=== PATIENT | female | born 1945 | race Caucasian/White ===

== ENCOUNTER 2020-05-30 04:14 | Inpatient (IN) | payer OTHER ==
[~2020-05-30] VITALS: Ht 154.9 cm; Wt 39.8 kg
[2020-05-30 06:00] VITALS: BP 153/68
--- NOTE | 2020-05-30 07:06 | NUR ---
Patient arrived at 0430 am via stretcher from [facility]. Patients is alert and oriented x3. Patient denies hi/si. Patient is in with anxiety and depression. Patient is accepting and is here voluntarily to get medications adjusted. Patient ambulates with a walker. Patient denies pain at this time. Patients assessment shows stable vital signs. Patient is willing to participate in activities. Patients consents signed. We will continue to monitor per hospital policy.
[2020-05-30 09:06] VITALS: BP 114/57
[2020-05-30 13:19] VITALS: BP 114/57
[2020-05-30 14:54] LABS: ALBUMIN 3.9 g/dL (3.4-5.0); DIRECT BILIRUBIN 0.1 mg/dL (<0.1-0.2); TOTAL BILIRUBIN 0.4 mg/dL (0.2-1.0); TOTAL PROTEIN 7.6 g/dL (6.4-8.2)
--- NOTE | 2020-05-30 17:19 | NUR ---
PATIENT WAS IN BED SLEEPING WHEN CARE ASSUMED. WHEN AWOKEN, PATIENT CAME OUT TO DAY ROOM AMBULATING WITH ASSIST OF ROLLER WALKER, GAIT SLIGHTLY UNSTEADY. HOSITALIST DR. COFFEY CONSULTED, PATIENT WELCOME PACK GIVEN TO HER. APPETITE IS GOOD, PATIENT IS EATING 50%-75% MEALS. PATIENT TOOK ALL MEDICATION WHOLE WITHOUT DIFFICULTY. PATIENT IS ALERT, AND ORIENTED X 2-3, ABLE TO VOICE NEED. PATIENT DENIES SUICIDAL/HOMICIDAL IDEATION, SHE RATED DEPRESSION/ANXIETY 9/10. PATIENT DENIES AUDITORY/VISUAL HALLUCINATION, DENIES HAVING PHYSICAL PAIN. PATIENT IS IMPULSIVE, RESTLESS, WANTING STAFF TO CONTINIOUSLY WALK WITH HER IN THE ROSE. THOUGHT PROCESS DISORGANIZED, AND RACING. PATIENT DID PARTICIPATE IN GROUP THERAPY. NO SIGN OF ACUTE DISTRESS NOTED AT THIS TIME, WILL MONITOR. FOR SAFETY.
[2020-05-30 20:30] VITALS: BP 144/66
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
--- NOTE | 2020-05-31 11:30 | NUR ---
Assess due to low BMI of 16.6. admitted to [facility] for anxiety, depression, and acute psychosis. Pt impulsive, possible wt loss 2-13 lb indicated prior admission. Has carb control diet order, however no indication in pts hx, not on diabetic medications and no accuchecks. Will change diet to regular. Alb wnl, has been eating 90-100% meals since admission. Low nutrition risk and will continue to follow wt trends, intake trends weekly.
--- NOTE | 2020-05-31 13:27 | NUR ---
CHUCK spoke with Zuly valenzuela's RN at [facility]. She gave the fax number of [phone]. CHUCK asked if they had DPOA docs for pt and she said they did; she will fax to CHUCK. She also gave pt's DPOA info of Yosvany Eisenberg (Bill) at [phone]. CHUCK contacted Mikel and was told by his that he will call CHUCK back. CHUCK team will continue to follow pt during her stay on this unit.
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
[2020-05-31 19:51] VITALS: BP 115/63
[2020-05-31 20:06] LABS: SYPHILIS AB Non Reactive (Non Reactive)
--- NOTE | 2020-06-01 04:56 | NUR ---
Assumed care of pt @ 1900. Pt calm et cooperative this shift. Took medications whole without difficulty. Ambulates the halls with assistance of walker with steady gait. VSWNL. Health assessment with no abnormalities noted at present time. Denies SI/HI at present time. Socialized with peers in dayroom until HS. Currently resting in bed with eyes closed. Will continue to monitor per protocol.
[2020-06-01 09:11] VITALS: BP 119/70
--- NOTE | 2020-06-01 10:36 | NUR ---
0700 ASSUMED CARE OF PATIENT, PATIENT IN BED AT THAT TIME. 0800 PATIENT REFUSING TO GET OUT OF BED FOR BREAKFAST FOR ASSISTANT BUYER. 0830 SENIOR BENEFITS MANAGER IN TO ROOM ASKED PT TO COME OUT FOR BREAKFAST, PATIENT UP TO BR VOIDED X1 THEN OUT TO DAYROOM TO EAT. PATIENT ATE 50% OF MEAL. PATIENT SITS IN DAYROOM FOR ANOTHER 15 MIN AFTER EATING THEN BACK TO ROOM. SENIOR BENEFITS MANAGER ASSISTED PATIENT IN CHOOSING FOOD FOR LUNCH SHE REFUSES TO EAT ANYTHING HARD. PATIENT IN BED AND ASKS TO HAVE DOOR CLOSED MUCH POSSIBLE. NOISE INCREASES PATIENT ANXIETY. NO C/O SI/HI/AH/VH. NO C/O PAIN. WILL CONTINUE TO OBSERVE.
--- NOTE | 2020-06-01 11:35 | EKG ---
[facility] [place] [address] ELECTROCARDIOGRAM REPORT Name: WILL RIZO Room #: [facility] [place] AD[place] IN M.R.#: [id number] Admission: 05/30/20 Attend Phys: Raul Stephen DO Discharge: Date of : 41 Report #: [id number] THIS REPORT FOR: cc: TORIE YAO MD Physician not on staff Aldo Patten MD ~ THIS REPORT FOR: //name// [facility] Test Date: 2020-05-31 Test Time: 12:56:22 Pat Name: WILL RIZO Department: Room: [facility] Gender: F Consultant Education: Nai HUFF : 1945 Requested By: Raul Stephen Order Number: [id number] MD: Aldo Patten Measurements Intervals Mooers Rate: 84 P: 20 AR: 161 QRS: -9 QRSD: 85 T: 61 QT: 354 QTc: 419 Interpretive Statements Sinus rhythm No previous ECG available for comparison Electronically Signed On 06-01-2020 11:35:33 CDT by Aldo Patten [email or web address] <ELECTRONICALLY SIGNED> By: Aldo Patten MD 06/01/20 1135 1256 1256 Aldo Patten MD /ALLYSSA
--- NOTE | 2020-06-01 15:00 | H ---
[facility] [place] [address] HISTORY AND PHYSICAL Name: WILL RIZO Room #: 520A-A ADM IN M.R.#: [id number] Admission: 05/30/20 Attend Phys: Raul Stephen DO Discharge: Date of : 41 Report #: [id number] THIS REPORT FOR: cc: TORIE YAO MD Physician not on staff Raul Stephen DO ~ CC: Raul Stephen Physician staff TORIE YAO DATE OF SERVICE: 05/30/2020 INPATIENT PSYCHIATRIC EVALUATION ATTENDING PSYCHIATRIST: Raul Stephen DO HOME MANAGEMENT SUPERVISOR: Tod Pang MD and his team of hospitalist. SOURCES OF INFORMATION: Records from Counts include 234 beds at the [facility], interview with the patient. The patient has a brother, Yosvany Eisenberg, will get an additional information from who is her DPOA. CHIEF COMPLAINT: SI statements. HISTORY OF PRESENT ILLNESS: This is a 75-year-old female who is in assisted living in [facility]. EMS was called due to increase in anxiety and making suicidal ideation statements. She later denied to the Emergency Room stating she is to start to make those kinds of statements. It is noted she has a long history of anxiety and depression. She reports numerous psychiatric hospitalizations though cannot recall where. She knew the day was , stated the year was 2009, she knew it was May. She had trouble remembering fair amount of historic details. Report from the long-term, the patient making suicidal threats to staff member, which was unable to be corroborated in the ER. She denied visual or auditory hallucinations. No previous history of suicide attempts. She denied any chest pain, abdominal pain, shortness of breath, fevers or chills. Denies any illicit drug use and states she drinks 1-2 times a week. Associated symptoms listed as anxiety. PAST MEDICAL HISTORY: Includes hyperlipidemia, hypertension. PSYCHIATRIC HISTORY: Anxiety, depression, psychosis. PAST SURGICAL HISTORY: Cyst removal. SOCIAL HISTORY: Denies ever smoking. She denied alcohol, drug use to me. [facility] [address] [place] [address] HISTORY AND PHYSICAL Name: WILL RIZO JO Room #: 520A-A ADM IN M.R.#: [id number] Admission: 05/30/20 Attend Phys: Raul Stephen DO Discharge: Date of : 41 Report #: [id number] Actually, she denied abuse of those, but does states she drinks 1 glass of wine per week. REVIEW OF SYSTEMS: From the ER, CONSTITUTIONAL: Negative for chills or fever. HEENT: Negative for congestion. EYES: Negative for visual disturbances. RESPIRATORY: Negative for shortness of breath. CARDIOVASCULAR: Negative for chest pain. GASTROINTESTINAL: Negative for abdominal pain, nausea, vomiting. GENITOURINARY: Negative for dysuria or hematuria. SKIN: Negative for rash. ALLERGIC/IMMUNOLOGIC: Negative for immunocompromised state. NEUROLOGIC: Negative for headaches. PSYCHIATRIC: Positive for dysphoric mood, being anxious. All other review of systems are negative on brief 10-point. PHYSICAL EXAMINATION: Grossly normal. HOME MEDICATIONS: Noted to be acetaminophen, alprazolam 0.25 mg, amlodipine 5 mg p.o. daily, aspirin 81 mg p.o. daily, atorvastatin 20 mg p.o. daily, calcium with vitamin D 500 mg/200IU I think it is 3 times a day, clonazepam 0.5 mg tablet, deutetrabenazine, so she has been treated for dyskinesia 12 mg p.o. daily, Depakote 125 mg delayed release twice a day, escitalopram 10 mg p.o. daily, lisinopril oral daily, omega 3 fish oil 1000 mg capsule, Oxybutynin and Seroquel. The patient since here she is going to be discharged on a safety plan and return back to facility; however, after reviewing from the nursing facility, they recommended inpatient psychiatric hospitalization. Bruna follows, this was done by JOLANTA Hardin at [facility]. She has had increased hallucinations, anxiety, agitation, making statements that her anxiety and depression are so bad that she wants to . She has repeatedly cancelled her psychiatric appointments. She is also refusing to eat and had a significant weight loss. She also has refused to go to any of her medical appointments. She has an extensive psychiatric history and needs to have her meds adjusted. I am concerned for her safety as she is in her apartment alone for extended periods of time. It is imperative to maintain safety that she is admitted to an inpatient psychiatric facility for medication adjustment and evaluation. LABORATORY DATA: Urine drug screen showed opiate, otherwise not detected. Urinalysis was negative. Electrolytes: Sodium 139, potassium 3.7, chloride 103, bicarbonate 29, anion gap 7, calcium 9, glucose 122, BUN 17, creatinine 0.6, GFR female tus-Zdcjkoc-Kgflaxwp 97. Alcohol negative. CBC: White count [facility] [address] [place] [address] HISTORY AND PHYSICAL Name: WILL RIZO Room #: 520A-A ADM IN .R.#: [id number] Admission: 05/30/20 Attend Phys: Raul Stephen, DO Discharge: Date of : 41 Report #: [id number] 7.02, H and H 12.4 and 37, platelet count 245. There was a psychiatric assessment that appears to have been done, but not offering a lot more information than got from the physical. She reported she has been at her facility for 3 years, feel safe there. She is a resident neighbor [place] which she considers a friend. She sleeps okay. She has decreased appetite, poor eyesight, misses reading books. Actually, I did not get where she was born and raised. She was in the early 70s, , after that. No children. She has 2 brothers. Forgot to ask level of education. VITAL SIGNS: Today, temperature 36.1, pulse 62, respirations 18, BP 114/57, O2 sat 97%. We will go ahead and order hepatic function panel as this was not on the outside records that will give us albumin and LFTs. I will also order B12 and vitamin D. She does appear to be cognitively impaired so I will add on the syphilis antibody. GENERAL: She ambulates with walker. She does have dyskinesia in her left foot. MUSCULOSKELETAL: Abnormal gait, dyskinesia evident of the left foot, "curling toes." MENTAL STATUS EXAMINATION: This is a well-developed, ill-appearing female appearing at least stated age. Attention limited. Concentration limited. Denied SI or HI. Endorses anxiety. Denied auditory, visual, or tactile hallucinations. Memory appears to be impaired. SLUMS deferred. Mood dysphoric, anxious, restricted. Insight limited. Judgment limited. Fund of knowledge below average. FORMULATION: A 75-year-old female set in for SI. 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 PLAN: Evaluate, stabilize, obtain collaterals. ESTIMATED LENGTH OF STAY: 10-14 days. B12, vitamin D, syphilis antibody, hepatic function panel ordered. I will review and see if she has had any neuroimaging if we are going to need to do a full dementia workup. STRENGTHS: She is insured, has DPOA. WEAKNESSES: Advancing age, multiple medical problems. We will start her on Seroquel. She requested to go easy, so start her on 12.[address] [facility] [address] [place] [place] [address] HISTORY AND PHYSICAL Name: WILL RIZO JO Room #: 520A-A ADM IN ..#: [id number] Admission: 05/30/20 Attend Phys: Raul Stephen DO Discharge: Date of : 41 Report #: [id number] mg 3 times a day. I discontinued the Depakote. We do not have Deutetrabenazine on formulary, so I do not think that can be treated here. . The hospitalist wanted her back on Norvas, which is fine and a statin, Pepcid and aspirin. Approximately 60 minutes spent on this case, greater than 50% of time spent on review of records, coordination of care. <ELECTRONICALLY SIGNED> By: Raul Stephen DO 06/01/20 1500 1303 1338 Raul Stephen, /nt
[2020-06-01 20:02] VITALS: BP 133/52
--- NOTE | 2020-06-02 04:39 | NUR ---
Assumed care of pt @ 1900. Pt calm et cooperative this shift. Pt appeared to be inordinately agitated this shift et anxiety level was to the extreme demonstratively. Pt was seen quivering at the table in the dinig room with the noise level appearing to be the cause. When pt was assisted to room to lie down, she became agitated when another peer entered the room before being escorted out. Took medications whole without difficulty. Ambulates with assistance of walker with slow et steady gait. VSWNL. Health assessment with no abnormalities noted at present time. Denies SI/HI at present time. Currently resting in bed with eyes closed. Will continue to monitor per protocol.
[2020-06-02 07:30] VITALS: BP 133/69
[2020-06-02 20:24] VITALS: BP 153/75
--- NOTE | 2020-06-02 22:37 | NUR ---
ASSUMED PT CARE AROUND 1930. AXOX1. VSS. NO S/S ACUTE DISTRESS NOTED OR REPORTED AT THIS TIME. CARE WITLL BE TRABSFERRED TO A DIFFERENT NURSE SHORTLY
--- NOTE | 2020-06-03 07:00 | NUR ---
SPOKE WITH DR AYON, HE D/C OT EVAL ORDER.
[2020-06-03 07:37] VITALS: BP 131/61
--- NOTE | 2020-06-03 13:01 | NUR ---
Nutrition status changed to moderate risk.
--- NOTE | 2020-06-03 15:54 | NUR ---
Dr. Stephen asked CHUCK to get level of care recommendatons for pt from [facility]. CHUCK spoke with Zach who assists the pt. Her recommendation was that pt would benefit from an [facility]. level of assisted. living. CHUCK provided this update to Dr. Stephen. CHUCK will discuss this also with pt's DPOA. SW team will continue to follow pt during her stay on this unit.
--- NOTE | 2020-06-03 18:41 | NUR ---
0700 ASSUMED CARE OF PATIENT, PATIENT IN BED AT THAT TIME. PATIENT REFUSES TO GET OUT OF BED FOR BREAKFAST AT 0800. QUALITY ASSURANCE SUPERVISOR BODY TO ROOM AND ASKS PATIENT TO COMEOUT FOR BREAKFAST, PATIENT UP AMB WITH WALKER WITH SHUFFLED GAIT. PATIENT REQUESTING DIET CHANGE AND AGGITATED. MEDICATION TAKEN WHOLE WITHOUT DIFFICULTY. PATIENT RETURNS TO ROOM AFTER MEALS AND STAYS IN ROOM MOST OF THE DAY. PATIENT IS CALM AND COOPERATIVE.
[2020-06-03 20:24] VITALS: BP 123/67
--- NOTE | 2020-06-04 06:40 | NUR ---
ASSUMED PT CARE AROUND 1930. AXOX2. VSS. NO S/S ACUTE DISTRESS NOTED OR REPORTED AT THIS TIME. WILL CONT TO MONITOR ANY CHANGERS IN CONDITION.
[2020-06-04 09:05] VITALS: BP 133/70
--- NOTE | 2020-06-04 11:01 | NUR ---
0700 ASSUMED CARE OF PATIENT, PATIENT LYING IN BED ASLEEP. PATIENT TO DAYROOM AMB WITH WALKER. PATIENT C/O WEAKNESS AND NOT BEING ABLE TO WALK WELL DUE TO RESTLESS LEG SYNDROME. PATIENT AT TABLE EATING BREAKFAST, PATIENT ATE 45% OF MEAL. 0820 MEDICATIONS GIVEN WHOLE WITHOUT DIFFICULTY. 0910 PATIENT PRESENT AT AM GROUP. PATIENT SITTING ON COUCH WATCHING TV. PATIENT STATES INCREASE ANXIETY DUE TO MULTIPLE EKG'S BEING DONE. PATIENT CONFUSED ONLY ONE EKG HAS BEEN DONE. PATIENT STATES HER INSURANCE WILL NOT COVER THAT MANY TESTS. DR COFFEY HERE TO SEE PATIENT. VS THIS AM BP-133/70 P-103 R- 22 TEMP-98.5 O2 SATS- 96%. WILL CONTINUE TO OBSERVE
--- NOTE | 2020-06-04 11:27 | NUR ---
CHUCK received a vm from Kat[place] asking for a retun call to [phone]. CHUCK contacted her and did not receive an answer. CHUCK lft msg. SW team will continue to follow pt during her stay on this unit.
--- NOTE | 2020-06-04 18:10 | NUR ---
1515 PATIENT TO SHOWER ROOM, PATIENT IN TUB WITH ASSIST X2. PATIENT TO ROOM AND WORRIED ABOUT WET HAIR. AS400 ANALYST ASSISTED WITH DRYING PT HAIR. PATIENT IN YELLOW JAMARI AND YELLOW SOCKS ON.
--- NOTE | 2020-06-04 18:26 | NUR ---
PATIENT REQUESTS PHONE TO CALL HER BROTHER. PATIENT AMBULATES TO ROOM WITH WALKER WITH A STEADY GAIT. PATIENT STATES "THE ATIVAN HELPED ME" PATIENT STATES A DECREASE IN ANXIETY AND REPORTS FEELING CALMER. WILL CONTINUE TO OBSERVE AND REPORT TO DR COOPER.
[2020-06-04 19:33] VITALS: BP 109/54
--- NOTE | 2020-06-05 03:18 | NUR ---
Assumed pt care at 1930. No sign distress noted. Pt is alert and confused. Denies any pain. Fall precaution in place. Pt is stable and is seen sitting in the common room. Assessment completed and documented. Scheduled meds administered to pt. No acute events overnight. Continue to monitor. No further needs at this time.
[2020-06-05 07:25] VITALS: BP 121/52
--- NOTE | 2020-06-05 13:05 | NUR ---
CHUCK faxed updates to [facility]. CHUCK team will continue to follow pt during her stay on this unit.
--- NOTE | 2020-06-05 15:40 | NUR ---
Assumed care 0700. Very shaky, uses walker though sometimes walks away from it. Call received from older brother in [place], [place] wanting to know about her future placement. Call from brother transferred to Jada Shapr for clarification.
--- NOTE | 2020-06-05 17:30 | NUR ---
Since about 1500 is much less shaky/tremulous. No offered physical complaints.
[2020-06-05 20:08] VITALS: BP 130/67
--- NOTE | 2020-06-06 00:51 | NUR ---
Assumed care on 06/05/20 @ 19:30, seated on the couch, fussing about having to sit on a chair alarm. Accuses staff of punishing her and making her sit on the chair alarm. Education provided regarding safety protocol. Patient points to other patients saying, they are not being made to sit on a pad. Orientd x 4, however paranoid in ideation noted. As to why she is in the hospital, responds that it is to have her meds checked out, but we wont help her. Refused to speak to family who called, and when asked what she would like to have staff report to family as to why she did not wish to speak to family, would not respond, but then said, what are you going to tell him? Called Lele @ [phone],and his line was busy. Takes meds whole with water and retires to bed @ HS. Bed in low Position, bed alarm set, will continue to monitor as per protocol for patient safety and comfort.
[2020-06-06 03:55] VITALS: BP 130/67
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
[2020-06-06 09:17] VITALS: BP 148/63
--- NOTE | 2020-06-06 12:13 | NUR ---
Mikel Eisenberg left CHUCK a msg asking for a return call. CHUCK called. No answer. Lft msg. team will continue to follow pt during her stay on this unit.
--- NOTE | 2020-06-06 17:30 | NUR ---
0700 ASSUMED CARE OF PATIENT. PATIENT IN BED AT THAT TIME. COIL TIER TALKS TO PT REGARDING BREAKFAST AND ORDERS PATIENT DESIRED MEAL. PATIENT AMB TO DAYROOM USING WALKER WITH SLIGHT SHUFFLE. PATIENT NOTED WITH YELLOW SHIRT AND YELLOW SOCK ON. PATIENT SITS AT TABLE WITH OTHERS AND COMMUNICATES WELL. PATIENT PARANOID ABOUT HER MEAL THAT WAS ORDERED. REASSURED HER THAT HER MEAL WAS ORDERED ON TIME. PATIENT ATE 100% OF MEAL. MEDICATIONS TAKEN WHOLE WITHOUT DIFFICULTY. LS CLEAR, BS ACTIVE. NO C/O PAIN. PATIENT PRESENT IN AM GROUP. AFTER GROUP PATIENT BACK TO ROOM TO REST. PATIENT REQUESTS TO BE OFF SOFT DIET ORDER AND TO HAVE A REGULAR DIET. PATIENT REQUESTS CHICKEN TENDERS WITH MEAL. DR COOPER CHANGED DIET AND PATIENT RECIEVED WHAT SHE REQUESTED. PATIENT ATE 100% OF DINNER. PATIENT IS NOTED TO BE CALMER AT THAT TIME. PATIENT STATES "MEDICATIONS ARE HELPING MY ANXIETY". WILL CONTINUE TO OBSERVE
[2020-06-06 20:44] VITALS: BP 137/68
--- NOTE | 2020-06-06 23:50 | NUR ---
Assumed care on 06/06/20 @ 19:15, seated in the day room, A&Ox 3-4, paranoid ideation noted. Cooperated with assessment, HRRR, Lungs diminished ABD has bowel sounds present. Reports BM today. Uses a walker and is a fall risk, feels that she is fairly steady when using a walker. Reports Pain in her mouth as a 4/10, and reports sometimes has pain in her knees, but now it is okay. Takes meds whole with water. Noted to be trembling in upper extremities less today. Retired to bed @ HS, bed in low position, bed alarm set. Will continue to monitor as per protocol.
[2020-06-07 01:12] VITALS: BP 137/68
[2020-06-07 07:46] VITALS: BP 125/51
--- NOTE | 2020-06-07 14:25 | NUR ---
0700 ASSUMED CARE OF PATIENT. PATIENT IN BED AT THAT TIME. 0800 PATIENT UP AMB TO DAYROOM, STOPS AT NURSES STATION TO ASK NURSE ABOUT HER BREAKFAST MENU AND IF HER MEAL WAS ORDERED. PATIENT ASSURED MEAL WAS ORDERED. PATIENT ATE 100% OF MEAL. PATIENT ATTENDED GROUP THIS AM. PATIENT NOTED WITH INCREASED ANXIETY . ATIVAN 1 MG PO GIVEN.
[2020-06-07 20:00] VITALS: BP 115/57
--- NOTE | 2020-06-07 23:49 | NUR ---
Assumed care on 06/07/20 @ 19:30. Cooperated with assessment, HRRR, Lungs diminished, ABD N and reports BM today. Takes meds whole with water without difficulty. Tylenol 500 for 5/10 General pain, follow up pain reports partial relief of 3/10, PRN Lorazepam 1 mg provided for noted anxiety and agitation, and cyclic worry. Retired to bed @ , at this writing, eyes are closed, respirations even and unlabored Bed in low posiiton and bed alarm set. Will continue to monitor for patient safety and comfort.
[2020-06-08 02:21] VITALS: BP 125/51
[2020-06-08 07:40] VITALS: BP 145/70
--- NOTE | 2020-06-08 13:46 | NUR ---
PATIENT OUT ON UNIT MOST OF THE DAY. AFFECT TENSE AND MOOD WORRISOME. MAKES NEEDS KNOWN. WAS ABLE TO CONVEY TO STAFF WHAT SHE WANTED FOR BREAKFAST, LUNCH AND DINNER. NERVOUS AND TREMORS EVIDENT. CLAIMS SLEPT WELL. TOOK MEDICATIONS COMPLIANTLY.
[2020-06-08 20:06] VITALS: BP 143/66
[2020-06-08 22:29] VITALS: BP 143/66
--- NOTE | 2020-06-09 03:16 | NUR ---
Assumed care of patient this pm shift. Patient appears anxious and sad. Patient stated that she was depressed. When asked if the current medication regimen is giving any relief to the depression patient stated that she did not think so. Patient denies pain. Patient denies hi/si. Patient is continent of bowel and bladder. Patient is considered a falls risk and has on a yellow shirt. Patients affect is sad. Patients assessment shows no signs of acute distress. Patient is medication adherent and takes medications whole with thin fluids. Patient did not voice any new concerns. We will continue to monitor per hospital protocol.
[2020-06-09 07:32] VITALS: BP 144/69
--- NOTE | 2020-06-09 10:32 | NUR ---
PATIENT CARE ASSUMED AT 1900 - PATIENT IN BED WHEN APPROACHED - SHE WAS QUESTIONED ON NIGHT AND STATED NOT GOOD - SHE WAS EMOTIONAL AND VERY DISTRAUGHT - HOLDING HEAD AND DISPLAYING HELPLESSNESS. STAFF HAD TO ENCOURAGE HER TO GET UP FOR BREAKFAST. WHEN ATTEMPTING TO CALM HER BEHAVIOR EXACERBATES - OBSERVED PATIENT BEHAVIOR CALM INTERMITTENTLY AND THEN EXPRESSES ANXIETY WHEN ATTENTION GIVEN. TOOK MEDICATIONS COMPLIANTLY. ATE 50 PER CENT OF HER BREAKFAST. APPEARS TO REACT EMOTIONALLY WHEN SURROUNDINGS LOUD OR OVERLY STIMULATING. NO PRN GIVEN AT THIS TIME DUE TO NON CONSISTENT OUTBURSTS.
[2020-06-09 19:35] VITALS: BP 127/58
--- NOTE | 2020-06-10 00:22 | NUR ---
PT [place] SOBSERVED LYING ON HER EBD AT START OF SHIFT.PT UP WITH A ROLLER WALKER AMUALTES TO AND FROM HER ROOM TO THE NURSES STATION.PT REQUESTED FOR AND RECEIVED MED FOR AGITATION.PT RESTING ON HER BED AT THIS TIME.PT REFUSING FOR BED ALARM TO BE TURNED ON.PT EDUCATED ON THE IMPORTANCE OF IT.ALARM ON ,PT NOT HAPPY ABOUT IT.REPORT GIVEN TO THE NURSE RELIEVING ME.
--- NOTE | 2020-06-10 06:28 | NUR ---
Assumed pt's care @ 2300. Pt continued to sleep well this shift. No new complaints noted. Fall precaution in place. Will continue to monitor.
[2020-06-10 08:38] VITALS: BP 134/66
--- NOTE | 2020-06-10 09:33 | NUR ---
0700 ASSUMED CARE OF PATIENT, PATIENT IN BED AT THAT TIME. 0730 PT OUT TO DESK FOR ASSISTANCE IN ORDERING BREAKFAST. PATIENT NOTED WITH INCREASED ANXIETY, AT 0745 ATIVAN 1MG GIVEN PO. PATIENT TO DAYROOM FOR BREAKFAST AT 0800, PATIENT ATE 100% OF MEAL. PATIENT PRESENT IN GROUP THIS AM.
[2020-06-10] MEDS ORDERED: LIPITOR 20 MG T20 M1 PO (12:07)
[2020-06-10] MEDS ORDERED: NORVASC5 MG PO (12:07)
[2020-06-10] MEDS ORDERED: ASPIR 8181 MG PO (12:08)
[2020-06-10] MEDS ORDERED: LEXAPRO 10 MG T10 MG PO (12:09)
[2020-06-10] MEDS ORDERED: OLANZAPINE2.5 MG PO (12:09)
--- NOTE | 2020-06-10 12:09 | NUR ---
CHUCK faxed to [facility] pt's COVID results. CHUCK confirmed with Katiuska that pt is still good to go to [facility] today at 1330. SW team will continue to follow pt during her stay on this unit.
[2020-06-10] MEDS ORDERED: NAMENDA 5 MG TAB5 M1 PO (12:11)
[2020-06-10] MEDS ORDERED: PEPCID20 MG PO (12:12)
[2020-06-10] MEDS ORDERED: COLACE 100 MG100 MG PO (12:12)
[2020-06-10] MEDS ORDERED: OXYBUTYNIN 5 MG5 M1 PO (12:12)
[2020-06-10] MEDS ORDERED: CALCIUM 600 +1 EA13 PO (12:12)
--- NOTE | 2020-06-10 14:01 | NUR ---
CHUCK D/C NOTE CHUCK faxed discharge docs to [facility] CHUCK will file fax with coverletter in pt's hospital file. No other needs for SW team to address at this time.
--- NOTE | 2020-06-10 14:25 | NUR ---
5756 PATIENT NOTED WITH INCREASED ANXIETY. DR COOPER ASKED PT TO SIT DOWN PATIENT UNSTEADY WALKING WITH WALKER. [facility] "[facility]". [facility] TALKS TO PT AND AMBULATES TO ROOM TO REST. PATIENT TO DAYROOM FOR LUNCH EATS WELL. 2330 PATIENT DC IN WC ACCOMPANIED BY STAFF TO VEHICLE FOR TRANSPORT TO [facility]. PATIENT WITH BELONGING IN HAND. REPORT CALLED TO [facility] @ [phone]. RECIEVED CALL FROM BROTHER ASKING IF PT HAS BEEN DC'D. [facility] SPOKE WITH BROTHER THELMA AND OBTAINED DC CONSENTS VIA PHONE.
== END 2020-06-10 13:00 | DRG 884 ==
LOC: SBH 04:14
PROVIDERS: ADMIT Psychiatry & Neurology Psychiatry; ATTEND Psychiatry & Neurology Psychiatry
DX: F01.50 Vascular dementia, unspecified severity, without behavioral disturbance, psychotic disturbance, mood disturbance, and anxiety (principal); E44.0 Moderate protein-calorie malnutrition; Z68.1 Body mass index [BMI] 19.9 or less, adult; R45.851 Suicidal ideations; F32.9 Major depressive disorder, single episode, unspecified; E78.5 Hyperlipidemia, unspecified; I10 Essential (primary) hypertension; F41.9 Anxiety disorder, unspecified; F29 Unspecified psychosis not due to a substance or known physiological condition; Z20.828 Contact with and (suspected) exposure to other viral communicable diseases; Z79.82 Long term (current) use of aspirin; Z79.899 Other long term (current) drug therapy
CPT/HCPCS: 10880